=== PATIENT | male | born 1970 | race Caucasian/White ===

== ENCOUNTER 2017-03-23 16:15 | Inpatient (IN) | payer BC ==
[2017-04-04] MEDS ORDERED: CEFAZOLIN/Water 2 GM/20 ML SYRINGE ONE (13:18)
[2017-04-04] MEDS ORDERED: Heparin 5,000 UNITS/ML VIAL ONE (13:18)
[2017-04-04] MEDS ORDERED: Midazolam HCl 2 mg/2 ml Vial ONE (13:22)
[2017-04-04] MEDS ORDERED: Bupivacaine PF 0.5% 30 ML VIAL ONE (13:39)
[2017-04-04] MEDS ORDERED: Fentanyl 250 MCG/5 ML VIAL ONE (13:48)
[2017-04-04] MEDS ORDERED: Propofol 200 MG/20 ML VIAL ONE (14:01)
[2017-04-04] MEDS ORDERED: ePHEDrine/0.9% NaCl/PF SYRINGE 50 mg/10 ml ONE (14:01)
[2017-04-04] MEDS ORDERED: Ondansetron HCl/PF 4 MG/2 ML Vial ONE (14:01)
[2017-04-04] MEDS ORDERED: Succinylcholine Chloride 20 MG/ML 10 ml SYRINGE FS ONE (14:01)
[2017-04-04] MEDS ORDERED: Ketorolac Tromethamine 30 MG/ML VIAL ONE (14:01)
[2017-04-04] MEDS ORDERED: Dexamethasone 20 MG/5 ML VIAL ONE (14:01)
[2017-04-04] MEDS ORDERED: Glycopyrrolate 0.2 MG/ML 5 ML SYRINGE ONE (14:01)
[2017-04-04] MEDS ORDERED: Lidocaine 2% PF 10 ML AMP (For Epidural Use) ONE (14:01)
[2017-04-04] MEDS ORDERED: Hydrocodone-Acetamin 15 ML UDCUP PO PRN (15:44)
[2017-04-04] MEDS ORDERED: Ondansetron HCl/PF 4 MG/2 ML Vial IVP PRN ×3 (15:44→16:03)
[2017-04-04] MEDS ORDERED: diphenhydrAMINE 50 MG/ML VIAL IVP PRN ×2 (15:44→16:03)
[2017-04-04] MEDS ORDERED: Dextrose 5% in Water 1,000 ML IV PRN (15:44)
[2017-04-04] MEDS ORDERED: Dextrose 50% Abboject 50 ML SYRINGE SLOW IVP PRN (15:44)
[2017-04-04] MEDS ORDERED: hydrALAZINE 20 MG/ML VIAL SLOW IVP PRN (15:44)
[2017-04-04] MEDS ORDERED: Promethazine HCl 25 MG/ML VIAL IM PRN ×3 (15:44→16:03)
[2017-04-04] MEDS ORDERED: Promethazine HCl 25 MG/ML VIAL SLOW IVP PRN (16:02)
[2017-04-04] MEDS ORDERED: HYDROmorphone 2 MG/ML VIAL SLOW IVP PRN (16:02)
[2017-04-04] MEDS ORDERED: Fentanyl 5000 MCG/250 ML CADD IVPB PRN (16:03)
[2017-04-04] MEDS ORDERED: Naloxone HCl 0.4 mg/ml Vial IV PRN (16:03)
[2017-04-04] MEDS ORDERED: diphenhydrAMINE 25 MG CAP PO PRN (16:03)
[2017-04-04] MEDS ORDERED: diphenhydrAMINE 50 MG/ML VIAL IM PRN (16:03)
[2017-04-04] MEDS ORDERED: Communication Order-Pharmacy FS SCH (16:15)
[2017-04-04] MEDS ORDERED: Fentanyl 20 MCG/ML 250 ML ONE (16:23)
[2017-04-04] MEDS: Ketorolac Tromethamine 30 MG/ML VIAL IVP SCH (18:15)
[2017-04-04 18:45] VITALS: BMI 31.0
[2017-04-04] MEDS ORDERED: FLU VACC QS2017-18 36 mo. & older 0.5 ML SYRINGE IM ONE (19:00)
--- NOTE | 2017-04-04 20:48 | OP ---
SURGEON: Santos Rogel M.D. PROCEDURE PERFORMED: Laparoscopic Jessica-en-Y gastric bypass. INDICATIONS: This is a 46-year-old male who had undergone sleeve gastrectomy about a year ago, had intractable gastroesophageal reflux causing erosive esophagitis. FINDINGS: A linear 60 mm gastrojejunostomy was performed utilizing blue load stapler. PROCEDURE IN DETAIL: After informed consent was obtained, the patient was taken to the operating ro om and given general endotracheal anesthesia placed in the supine position. The abdomen was prepped and draped in the usual fashion. Local anesthesia infiltrated subcutaneously and deep. A 12 mm in cision was performed approximately 8 inches below the xiphoid site the left. Veress needle inserted . Drop test performed. Pneumoperitoneum was created to a volume of 2 liters of carbon dioxide. Ut ilizing a bladeless 12 mm trocar and 0 degree laparoscope, direct visual entry in the abdominal cavi ty was performed. Pneumoperitoneum was then created to a pressure of 15 mmHg. Two 12 mm ports plac ed on the right and one on the left and the omentum was grasped and advanced superiorly. The ligame nt of Treitz was found, 50 cm of small bowel was measured off and the jejunum was divided utilizing a linear 60 mm white load stapler. Then, the Jessica limb was created by measuring of 80 cm and a side -to-side functional end-to-end anastomosis was performed. Enterotomies were performed and the linea r 60 mm white load stapler was inserted, one limb in each limb of bowel, closed, 20 seconds then fir ed. The anastomosis checked. There was no bleeding. The enterotomy closed with a linear 60 mm whi te load stapler. The potential hernia space of Alvarez was closed with a [id number] of 2-0 si lk. The omentum was split to facilitate delivery of the Jessica limb to the desired position. This wa s done with the LigaSure. Then, the patient was placed in steep reverse Trendelenburg position and Nathansen liver retractor inserted. Left lobe of liver retracted superiorly. The stomach was inspe cted and the lesser curve was opened with LigaSure to allow placement of a stapler across the sleeve . The stomach was divided utilizing a linear 60 mm blue load stapler transversely. Then using caut oliver, the pouch of the stomach was opened. A gastrotomy was performed and then the Jessica limb was bro ught up and an enterotomy was performed approximately 6 cm from the distal staple line. The linear 60 mm blue load stapler was used to insert one limb in the small bowel and also into the stomach gulshan ch. This was then closed and fired. The common gastroenterotomy was closed with a running PDS V-Lo c suture from right to left. While the stitch was still in place, I went above and performed an EGD . The endoscope was inserted under direct vision and advanced through the esophagus into the stomac h pouch and then easily into the Jessica limb. There was no active bleeding nor was there any evidence of air leak when this was emerged under water. This was decompressed and the scope removed. One m ore suture of the V-Loc was performed. It was divided then the needle removed. Hemostasis assured. I had to place a 2-0 Vicryl suture utilizing the GraNee needle on the right side due to some bleed ing from that port site. FloSeal was applied to the gastrojejunostomy anastomosis. Then, trocars a nd retractors were removed. The skin closed with interrupted 4-0 Rapide. Dermabond applied. The p atient tolerated the procedure well and transferred to recovery in good condition. Sponge and needl e count verified correct x2.
[2017-04-04] MEDS: CEFAZOLIN/Water 2 GM/20 ML SYRINGE SLOW IVP SCH (21:04)
[2017-04-05] MEDS: Ketorolac Tromethamine 30 MG/ML VIAL IVP SCH ×3 (00:04→12:34)
[2017-04-05] MEDS: CEFAZOLIN/Water 2 GM/20 ML SYRINGE SLOW IVP SCH (05:30)
[2017-04-05 06:35] LABS: #Lymphocytes 1.2 thou/uL (1.20-3.40); #Monocytes 0.7 thou/uL (0.11-0.59); #Neutrophils 7.9 thou/uL (1.40-6.50); %Basophils 0.1 % (0.0-1.0); %Eosinophils 0.1 % (0.0-10.0); %Monocytes 7.2 % (0.0-10.0); Hematocrit 39.7 % (42.0-52.0); Mean Platelet Volume 7.2 fL (7.4-10.4); Red Blood Cell (RBC) Count 4.24 mill/uL (4.70-6.10); White Blood Cell (WBC) Count 9.8 thou/uL (4.8-10.8)
[2017-04-05 07:03] LABS: Anion Gap 10 mmol/L (10-20); BUN (Urea Nitrogen) 15 mg/dL (8.9-20.6); Calc. Creatinine Clearance 164 mL/min (70-130); Carbon Dioxide 30 mmol/L (22-29); Chloride 102 mmol/L (98-107); Estimated GFR-MDRD Greater than 90
[2017-04-05 08:16] VITALS: BP 96/63; TEMP 97.6
[2017-04-05] MEDS ORDERED: Enoxaparin Sodium 40 MG/0.4 ML SYRINGE SC SCH (09:00)
[2017-04-05] MEDS ORDERED: Pantoprazole 40 MG VIAL IVP SCH (09:00)
--- NOTE | 2017-04-05 09:53 | RAD ---
LIMITED UPPER GI WITH 15 ML OF GASTROGRAFRIN: HISTORY: Recent gastric bypass surgery. FINDINGS: There is prompt passage of contrast from the esophagus into the small bowel loops. No contrast extr avasation is seen. IMPRESSION: No evidence of obstruction or leak. POS: [facility]
[2017-04-05] MEDS ORDERED: GASTROGRAFIN 30 ML BOT ONE (12:00)
--- NOTE | 2017-04-05 17:48 | DIS ---
DATE OF ADMISSION: 04/04/2017 DATE OF DISCHARGE: 04/05/2017 DISCHARGE DIAGNOSIS: Intractable reflux. SURGEON: Dr. Rogel. PROCEDURES DURING ADMISSION: Laparoscopic Jessica-en-Y gastric bypass, esophagogastroduodenoscopy, pos toperative Gastrografin swallow. HOSPITAL COURSE: The patient was admitted, taken to the operating room where he underwent a Jessica-en -Y gastric bypass, conversion from sleeve with intraoperative esophagogastroscopy. Postoperatively, he did well. Gastrografin swallow was fine. Started on liquids, and he is tolerating it well. Pa in is controlled on p.o. meds. He is discharged home on hydrocodone and Zofran, and follow up with me in 2 weeks.
== END 2017-04-05 15:11 | disposition home or self-care (01) | DRG 327 ==
LOC: SURG A 04-04 11:19 → EEVIPCON 04-04 16:15 → SURG B 04-04 17:25
PROVIDERS: ADMIT Surgery; ATTEND Surgery
PROC: 0D164ZA Bypass Stomach to Jejunum, Percutaneous Endoscopic Approach (ICD-10-PCS; principal; 2017-04-04)
PROC: 0DJ08ZZ Inspection of Upper Intestinal Tract, Via Natural or Artificial Opening Endoscopic (ICD-10-PCS; 2017-04-04)
DX: K21.0 Gastro-esophageal reflux disease with esophagitis (principal); K22.10 Ulcer of esophagus without bleeding; I10 Essential (primary) hypertension; Z90.3 Acquired absence of stomach [part of]; E78.00 Pure hypercholesterolemia, unspecified; F32.9 Major depressive disorder, single episode, unspecified; F41.9 Anxiety disorder, unspecified; M19.90 Unspecified osteoarthritis, unspecified site; J45.909 Unspecified asthma, uncomplicated; Z87.891 Personal history of nicotine dependence
CPT/HCPCS: 36415; 74241; 80048; 85025; 90471; 90682; 94760; C9113; G0008; J0131; J1100; J1170; J1644; J1650; J1885; J2001; J2250; J2405; J2704; J3010; Q2036; S0020

== ENCOUNTER 2017-03-23 16:20 | Outpatient (CLI) | payer BC ==
[2017-03-23 17:23] LABS: #Basophils 0.1 thou/uL (0.0-0.2); #Eosinphils 0.1 thou/uL (0.0-0.7); #Lymphocytes 2.5 thou/uL (1.20-3.40); #Monocytes 0.6 thou/uL (0.11-0.59); #Neutrophils 4.2 thou/uL (1.40-6.50); %Basophils 1.2 % (0.0-1.0); %Monocytes 7.5 % (0.0-10.0); Hematocrit 43.1 % (42.0-52.0); Mean Platelet Volume 6.8 fL (7.4-10.4); Red Blood Cell (RBC) Count 4.64 mill/uL (4.70-6.10); White Blood Cell (WBC) Count 7.5 thou/uL (4.8-10.8)
[2017-03-23 17:40] LABS: Hemoglobin A1c 4.8 % (4.0-6.0)
--- NOTE | 2017-03-23 17:49 | RAD ---
PA AND LATERAL CHEST X-RAY 03/23/17 HISTORY: Preoperative evaluation. COMPARISON: 04/28/16. FINDINGS: The cardiac silhouette and pulmonary vasculature are within normal limits. The lungs remain clear. T here has been no interval change when compared to the prior exam. Surgical clips again overlie the right upper quadrant. IMPRESSION: No acute cardiopulmonary process. POS: [facility]
[2017-03-23 17:57] LABS: ALT (SGPT) 67 U/L (8-55); AST (SGOT) 27 U/L (5-34); Alkaline Phosphatase 90 U/L (40-150); Anion Gap 11 mmol/L (10-20); BUN (Urea Nitrogen) 9 mg/dL (8.9-20.6); Bilirubin, Direct 0.3 mg/dL (0.1-0.3); Bilirubin, Total 0.8 mg/dL (0.2-1.2); Calc. Creatinine Clearance 0 mL/min (70-130); Calcium 9.6 mg/dL (7.8-10.44); Carbon Dioxide 31 mmol/L (22-29); Chloride 104 mmol/L (98-107); Estimated GFR-MDRD Greater than 90; Protein, Total 7.3 g/dL (6.0-8.3)
== END 2017-03-23 16:21 | disposition home or self-care (01) ==
LOC: LABBT 16:20
PROVIDERS: ATTEND Surgery
DX: Z01.818 Encounter for other preprocedural examination (principal); E66.01 Morbid (severe) obesity due to excess calories
CPT/HCPCS: 71020; 80053; 80076; 83036; 85025; 93005; 93010

== ENCOUNTER 2017-07-21 09:00 | Outpatient (CLI) | payer BC ==
--- NOTE | 2017-07-21 12:19 | CT ---
CT ABDOMEN AND PELVIS WITH ORAL AND IV CONTRAST: Date: 07/21/17 HISTORY: 46-year-old male with severe left-sided abdominal pain, post gastric bypass surgery. FINDINGS: The lung bases are clear. There is decreased attenuation of the liver compared to the spleen consiste nt with fatty infiltration. No hepatic mass or abnormal biliary ductal dilatation is seen. The patien t is post cholecystectomy and gastric bypass surgery. The spleen, pancreas, adrenal glands, and kidne ys are normal. No free air, free fluid, or lymphadenopathy seen in the abdomen or pelvis. No abnormally loculated fl uid collection is noted to suggest abscess formation. The small bowel loops are not abnormally dilate d. No pericolonic inflammatory changes are seen. A normal appearing appendix is present. There are de generative changes in the spine. A left hip arthroplasty is present. IMPRESSION: 1. Fatty liver. 2. No evidence of bowel obstruction. POS: [facility]
[2017-07-21] MEDS ORDERED: Iopamidol 370 76% 100 ML VIAL ONE (16:36)
== END 2017-07-21 09:01 | disposition home or self-care (01) ==
LOC: CT 09:00
PROVIDERS: ATTEND Surgery
DX: G89.18 Other acute postprocedural pain (principal); K76.0 Fatty (change of) liver, not elsewhere classified
CPT/HCPCS: 74177

== ENCOUNTER 2017-07-23 03:44 | Inpatient (IN) | payer BC ==
[2017-07-23] MEDS ORDERED: Ondansetron HCl/PF 4 MG/2 ML Vial ONE (04:23)
[2017-07-23] MEDS ORDERED: Fentanyl 100 MCG/2 ML VIAL ONE (04:23)
[2017-07-23 04:31] LABS: #Basophils 0.1 thou/uL (0.0-0.2); #Eosinphils 0.1 thou/uL (0.0-0.7); #Lymphocytes 2.2 thou/uL (1.20-3.40); #Monocytes 0.6 thou/uL (0.11-0.59); #Neutrophils 3.5 thou/uL (1.40-6.50); %Basophils 1.3 % (0.0-1.0); %Eosinophils 2.2 % (0.0-10.0); %Lymphocytes 33.9 % (21.0-51.0); %Monocytes 8.8 % (0.0-10.0); %Neutrophils 53.9 % (42.0-75.0); Hemoglobin 13.1 g/dL (14.0-18.0); Mean Corpuscular HGB CONC 33.1 g/dL (32.0-36.0); Mean Corpuscular Hemoglobin 31.1 pg (27.0-31.0); Mean Platelet Volume 6.8 fL (7.4-10.4); Platelet Count 299 thou/uL (130-400); RBC Distribution Width 12.1 % (11.5-14.5); Red Blood Cell (RBC) Count 4.22 mill/uL (4.70-6.10); White Blood Cell (WBC) Count 6.4 thou/uL (4.8-10.8)
[2017-07-23 04:48] LABS: ALT (SGPT) 223 U/L (8-55); AST (SGOT) 106 U/L (5-34); Albumin 3.8 g/dL (3.5-5.0); Alkaline Phosphatase 249 U/L (40-150); Anion Gap 12 mmol/L (10-20); BUN (Urea Nitrogen) 17 mg/dL (8.9-20.6); Bilirubin, Total 0.8 mg/dL (0.2-1.2); Calc. Creatinine Clearance 0 mL/min (70-130); Calcium 8.9 mg/dL (7.8-10.44); Carbon Dioxide 28 mmol/L (22-29); Chloride 104 mmol/L (98-107); Estimated GFR-MDRD Greater than 90; Globulin 2.8 g/dL (2.4-3.5); Glucose 85 mg/dL (70-105); Lipase 310 U/L (8-78); Potassium 3.9 mmol/L (3.5-5.1); Protein, Total 6.6 g/dL (6.0-8.3); Sodium 140 mmol/L (136-145)
[2017-07-23] MEDS ORDERED: Acetaminophen 325 MG TAB PO PRN (06:20)
[2017-07-23] MEDS ORDERED: Ondansetron HCl/PF 4 MG/2 ML Vial IVP PRN (06:20)
[2017-07-23] MEDS ORDERED: Ondansetron ODT 4 MG TAB SL PRN (06:20)
[2017-07-23] MEDS ORDERED: Sodium Chloride 0.9% 1,000 ML IV SCH (06:20)
[2017-07-23 07:19] VITALS: BMI 27.6
[2017-07-23] MEDS: Fentanyl 100 MCG/2 ML VIAL SLOW IVP PRN ×5 (07:47→23:37)
[2017-07-23] MEDS ORDERED: Multivit, Adult Inj 10 ML VIAL IV SCH (09:30)
[2017-07-23] MEDS ORDERED: Multivitamins, Adult 10 ML, Thiamine HCl 100 MG in Sodium Chloride 0.9% 1,000 ML IV SCH (09:30)
[2017-07-23] MEDS ORDERED: Sodium Chloride 0.9% 500 ML IV SCH (09:30)
[2017-07-23 10:03] LABS: Acetaminophen Less than 6.0 mcg/mL (10.0-30.0); Alcohol Less than 10 mg/dL (Less than 10); Salicylate Less than 8.0 mg/dL (15.0-30.0)
[2017-07-23 10:16] LABS: Amphetamine Not Detected (NotDetected); Barbiturates Screen Not Detected (NotDetected); Benzodiazepine Screen Detected (NotDetected); Cocaine Metabolite Screen Not Detected (NotDetected); Medtox Control Line Valid? VALID (VALID); Medtox Reader # READER 1; Methadone Not Detected (NotDetected); Methamphetamine Not Detected (NotDetected); Opiate Screen Detected (NotDetected); Oxycodone Screen Not Detected (NotDetected); Phencyclidine (PCP) Not Detected (NotDetected); THC/Cannabinoid Screen Not Detected (NotDetected); Tricyclic Screen Not Detected (NotDetected)
[2017-07-23] MEDS: Sodium Chloride 0.9% 1,000 ML IV SCH ×2 (10:22→13:40)
[2017-07-23 10:24] LABS: HBCM Index 0.07 S/CO (0-0.79); Hep A IgM AB Non-Reactive (NonReactive); Hep A IgM S/CO 0.11 S/CO (0-0.79); Hep B Surf Ag Non-Reactive S/CO (NonReactive); Hep C IgG Ab Non-Reactive (NonReactive); Hep C Index 0.09 S/CO (0-0.79); Hepatitis B Core IGM Abs Non-Reactive (NonReactive)
[2017-07-23] MEDS ORDERED: Lorazepam 2 MG/ML VIAL SLOW IVP SCH (11:00)
--- NOTE | 2017-07-23 13:41 | MRI ---
NONCONTRAST MRI ABDOMEN AND MRCP: Date: 07-23-17 History: Elevated liver function test and elevated lipase. Post gastric bypass procedure. Severe left sided abdominal pain for several which is now getting worse. FINDINGS: There is no intra or extrahepatic biliary ductal dilatation. No obvious filling defects are seen with in the common duct. Pancreatic duct also appears normal in caliber. There is metallic susceptibility artifact seen within the gallbladder fossa related to surgical clips secondary to cholecystectomy. There is mild fatty infiltration of the liver with a fat fraction of 1 4.5%. The spleen, pancreas, bilateral adrenal glands, and right kidney demonstrate a normal nonenhanced MRI appearance. There are three subcentimeter increased T2 weighted signal intensity foci seen involving the mid portion and inferior pole left kidney likely related to small cysts. There is no hydronephro sis present. There is a tiny amount of free fluid adjacent to the liver and spleen. There is no evidence of lymphadenopathy or fluid collection. There is metallic susceptibility artifac t seen in the region of the GE junction and in the epigastric region likely related to suture materia l secondary to patient's gastric bypass procedure. Mild degenerative changes are seen in the spine. IMPRESSION: 1. Mild fatty infiltration of the liver. 2. Post cholecystectomy changes. There is no evidence of intra or extrahepatic biliary ductal dilatat ion, and no definitive filling defect is seen in the extrahepatic common duct. The pancreas has a nor mal MRI appearance on this nonenhanced exam. 3. Tiny left renal cysts. 4. Post-surgical changes related to gastric bypass procedure. 5. Trace amount of free fluid adjacent to the liver and spleen. POS: [facility]
--- NOTE | 2017-07-23 17:40 | HP ---
CHIEF COMPLAINT: Fatigue and epigastric pain. HISTORY: This is a 46-year-old male who underwent a laparoscopic Jessica-en-Y gastric bypass in March for severe reflux after a sleeve in 10/2016. He was doing fine until about a week ago when he start ed having severe epigastric pain and fatigue. It became much worse last night and he went to the [facility] room. PAST MEDICAL HISTORY: Significant for hyperlipidemia, depression, anxiety, hypertension. PAST SURGICAL HISTORY: Vasectomy, rotator cuff surgery, laparoscopic cholecystectomy in 2004, tonsil and adenoidectomy, sleeve gastrectomy and Jessica-en-Y gastric bypass. MEDICATIONS: Include pravastatin, Pepcid, Viibryd, lorazepam, ALLERGIES: MORPHINE. SOCIAL HISTORY: He is . Occasional alcohol, no tobacco. FAMILY HISTORY: Noncontributory. PHYSICAL EXAMINATION: VITAL SIGNS: Temperature 97.7, pulse 56, blood pressure 108/71. GENERAL: Well-developed, well-nourished male. Appears comfortable, in no apparent distress. HEENT: Unremarkable. LUNGS: Clear. HEART: Regular rate and rhythm. ABDOMEN: Soft. Mild tenderness in the epigastrium. EXTREMITIES: Unremarkable. LABORATORY AND X-RAY FINDINGS: White count 6.4, H and H 13 and 39, platelet count 299. Electrolytes are fine. AST elevated at 106, ALT at 223, alkaline phosphatase at 249, lipase at 310. ASSESSMENT: Elevated liver function tests with pancreatitis. PLAN: MRCP, bowel rest, IV fluids, GI consult.
[2017-07-23] MEDS: Lorazepam 1 MG TAB PO SCH (23:37)
[2017-07-24] MEDS: Sodium Chloride 0.9% 1,000 ML IV SCH ×4 (01:55→14:42)
--- NOTE | 2017-07-24 02:15 | CON ---
DATE OF CONSULTATION: 07/23/2017 REFERRING PHYSICIAN: Santos Rogel M.D. REASON FOR CONSULTATION: Abdominal pain, abnormal LFTs and elevated serum lipase. HISTORY OF PRESENT ILLNESS: Ms. Jd Ulloa is a 46-year-old male with multiple prior surgeries including gastric sleeve surgery and revision to gastric bypass in 03/2017. The patient also has had previous cholecystectomy for gallstones in 2004. The patient developed abdominal pain which is over the left upper quadrant with nausea a couple of weeks ago. The patient did see Dr. Santos Rogel on and was sent for abdominal CAT scan. The patient's pain gotten worse and has had nausea and vomiting. He came to the ER yesterday and had a blood test done. The serum lipase is elevated. Also , liver function elevated. The patient is on pain medicine at the present time. He is n.p.o. except for pain medicine. The abdominal pain persists and the pain is predominantly over the left upper quadrant. It does not radiate to the back. He has had nausea off and on with occasional vomiting. He has no prior history of pancreatitis. The patient does drink alcohol off and on. He had a beer probably 24 hours earlier, but he has had no history of alcohol intake. But however, he does drinks several beers on and off. The patient amylase and lipase are slightly elevated. Also, liver function tests are slightly elevated. He has had no fever. No diarrhea. No other relevant history. MEDICAL ILLNESSES: 1. Hypertension. 2. Hyperlipidemia. 3. History of chronic acid reflux, not controlled with medications. Subsequently, the gastric bypass surgery and his reflux symptoms are much better. 4. He has no history of any heart disease, diabetes, or lung disease. SURGERIES: Multiple surgeries, 1. Gastric sleeve surgery. 2. C5-C6 fusion. 3. Right rotator cuff surgery. 4. Laminectomy L2-S1. 5. Left hip replacement. 6. Status post laparoscopic cholecystectomy. 7. Status post gastric bypass last year because of worsening acid reflux. Other surgeries include tonsillectomy, hernia repair, and also vasectomy. MEDICATIONS: List reviewed. REVIEW OF SYSTEMS: A 10-point system reviewed. CONSTITUTIONAL: Complains of fatigue and tiredness of recent onset. He also had nausea. No history of fever. No recent weight loss. RESPIRATORY: No history of chronic cough, hemoptysis, exertional dyspnea. CARDIOVASCULAR: No chest pain, no palpitation, no exertional dyspnea, orthopnea or PND. GASTROINTESTINAL: Abdominal pain, nausea with occasional vomiting. His bowel movements are very loose and he has almost like a dumping syndrome . At times, he has multiple loose stools. No hematochezia, no melena. GENITOURINARY: No dysuria, hematuria or frequency of urination. MUSCULOSKELETAL/ENDOCRINE/HEMATOLOGICAL: Unremarkable. NEUROPSYCHIATRIC: History of anxiety. PHYSICAL EXAMINATION: GENERAL: The patient appears comfortable. He is thin built. He is in no distress. He is awake, alert, oriented to time and place and person. He is in no distress at the present time. VITAL SIGNS: He is afebrile, pulse is 56, blood pressure 107/72. HEENT: Conjunctivae clear. NECK: Supple. No adenitis or thyromegaly noted. CARDIOVASCULAR: First and second heart sounds normal. LUNGS: Clear to auscultation. ABDOMEN: Soft to palpate. Abdomen is mildly tender over the left upper quadrant. There is some fullness noted. There is no rebound or guarding. No organomegaly or masses. Bowel sounds are active. EXTREMITIES: Reveal no edema. LABORATORY DATA: Shows WBC 6400, hemoglobin 13.1, hematocrit 39.7, MCV is 94, platelet count is 299,000, polymorphs 53, lymphocytes 33. Serum chemistries, lipase is 310. LFTs, AST 106, ALT 223, alkaline phosphatase 249. Chem-7 is normal. He had an abnormal CAT scan on 07/21/2017. The CAT scan is basically negative for fatty liver. There is no biliary duct dilatation and no pancreatic mass seen. CLINICAL IMPRESSION: 1. Acute pancreatitis most likely biliary in etiology. The patient has had prior cholecystectomy about 12 years ago. Based on the history and physical findings and elevated LFTs, most likely he has passed a stone down to bile duct or he still has some retained stone. Other possibilities could have pancreatitis from alcohol intake. He does not drink alcohol off and on. 2. Multiple prior abdominal surgeries including gastric sleeve, gastric bypass , cholecystectomy, etc. 3. Hypertension. 4. Hyperlipidemia. RECOMMENDATIONS: N.p.o., analgesics and IV fluids. I did talk to Dr. Santos Rogel about the management. He has had a gastric bypass surgery. ERCP. However, an MRCP can be done and we will order an MRCP hopefully today or tomorrow. If the MRCP does show some retained stone, he will be referred for endoscopy for ERCP. RODRIGO
[2017-07-24] MEDS: Fentanyl 100 MCG/2 ML VIAL SLOW IVP PRN ×5 (06:06→19:54)
[2017-07-24] MEDS: Thiamine HCl 200 MG/2 ML VIAL SLOW IVP SCH (08:43)
[2017-07-24 10:14] LABS: ALT (SGPT) 141 U/L (8-55); AST (SGOT) 45 U/L (5-34); Albumin 3.4 g/dL (3.5-5.0); Alkaline Phosphatase 223 U/L (40-150); Bilirubin, Direct 0.4 mg/dL (0.1-0.3); Bilirubin, Total 0.9 mg/dL (0.2-1.2); Lipase 14 U/L (8-78); Protein, Total 5.8 g/dL (6.0-8.3)
[2017-07-24] MEDS ORDERED: HYDROcodone/Acetaminophen 10/325 mg Tablet PO PRN (17:18)
[2017-07-24] MEDS: HYDROcodone/Acetaminophen 10/325 mg Tablet PO PRN ×2 (17:26→22:32)
[2017-07-24] MEDS: Ondansetron HCl/PF 4 MG/2 ML Vial SLOW IVP PRN ×2 (18:31→22:32)
[2017-07-24] MEDS: Lorazepam 1 MG TAB PO SCH (22:25)
[2017-07-25] MEDS: Sodium Chloride 0.9% 1,000 ML IV SCH ×3 (02:44→14:29)
--- NOTE | 2017-07-25 04:28 | PRG ---
DATE OF SERVICE: 07/24/2017 HISTORY OF PRESENT ILLNESS: This is a 46-year-old male hospitalized with acute pancreatitis and abnormal LFTs. The patient is status post cholecystectomy about 12 years ago. He also had a gastric sleeve, gastric bypass. He had MRCP done yesterday. The MRCP shows no filling defect in the common bile duct. There was no other pathology seen. He continued to have abdominal pain and he is on fentanyl. He said the fentanyl really does not help that much. His serum lipase was 310 yesterday, which has come back to normal at 14 today. Liver function tests are trending down. The AST is down to 45, ALT 141, alkaline phosphatase 223. PHYSICAL EXAMINATION: GENERAL: Appears comfortable, afebrile. VITAL SIGNS: Pulse is 62, blood pressure 122/79. CARDIOVASCULAR: Within normal limits. ABDOMEN: Soft to palpate. Abdomen is mildly tender over the left upper quadrant. There is no rebound or guarding. The exam is overall benign. CLINICAL IMPRESSION: 1. Acute pancreatitis, most likely biliary. It is possible that he could have passed the stone down the common bile duct to account for the elevation of the LFTs. The magnetic resonance cholangiopancreatography was negative for any gallstones in the gallbladder. 2. Status post gastric bypass in 2016. 3. Status post cholecystectomy in 2004. RECOMMENDATIONS: 1. Clear liquid diet today and advance diet as tolerated. 2. Follow up LFTs. We will sign off as his lipase is back to normal. If he needs further assistance, please call me back. RODRIGO
[2017-07-25] MEDS: HYDROcodone/Acetaminophen 10/325 mg Tablet PO PRN ×2 (04:34→10:43)
[2017-07-25] MEDS: Fentanyl 100 MCG/2 ML VIAL SLOW IVP PRN ×2 (04:35→21:56)
[2017-07-25] MEDS: Ondansetron HCl/PF 4 MG/2 ML Vial SLOW IVP PRN ×2 (04:37→10:43)
[2017-07-25 05:11] LABS: ALT (SGPT) 105 U/L (8-55); AST (SGOT) 29 U/L (5-34); Albumin 3.2 g/dL (3.5-5.0); Alkaline Phosphatase 189 U/L (40-150); Bilirubin, Direct 0.3 mg/dL (0.1-0.3); Bilirubin, Total 0.6 mg/dL (0.2-1.2); Lipase 100 U/L (8-78); Protein, Total 5.5 g/dL (6.0-8.3)
[2017-07-25] MEDS: Thiamine HCl 200 MG/2 ML VIAL SLOW IVP SCH (08:54)
[2017-07-25] MEDS ORDERED: traMADol HCl 50 MG TAB PO PRN ×2 (14:21)
[2017-07-25] MEDS ORDERED: Ondansetron HCl/PF 4 MG/2 ML Vial SLOW IVP PRN (14:23)
[2017-07-25] MEDS: Lorazepam 1 MG TAB PO SCH (20:05)
--- NOTE | 2017-07-25 20:24 | PRG ---
DATE OF SERVICE: 07/25/2017 SUBJECTIVE: Mr. Ulloa was seen in followup today. He has been seen by Dr. 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 Dominick Palmer. He states he felt a little better and his diet was advanced and the pain worsened. He has had no melena, hematochezia, n ausea or vomiting. He does not have any pain like this in the past. It was felt it may be due to pa ncreatitis, although his lipase was never above 310, yesterday it was 14, today it is 100. He did michaels ve mild elevation of the liver functions, which are slowly improving. I talked with the patient, he knows that he was started on etodolac recently, prior to that he was on meloxicam. Pain began about a week after starting the etodolac. OBJECTIVE: VITAL SIGNS: Temperature is 97, pulse 61, blood pressure is 110/77. ABDOMEN: Soft, mild tender epigastrium. There is no rebound. There is no guarding. LABORATORY STUDIES: AST normal at 29, ALT 105, alkaline phosphatase 29, down from 223 yesterday and 249 day before that. Lipase is 100, it was 14 yesterday and 310 on the . Serology, hepatitis A, B, C negative. Toxicology, positive for benzos and opiates on admission. It is unclear if these we re given in the ER. Plasma alcohol is less than 10 on admission. ASSESSMENT: Epigastric pain, ongoing. There are no signs of pancreatitis or choledocholithiasis on CT or MRCP. At this point, it is not clear if he had pancreatitis. With ongoing epigastric pain, di fferential diagnoses include disease, NSAID related effect on stomach and liver, viral illness. PLAN: With no signs of choledocholithiasis at this time on multiple imaging studies and dropping LFT s, normal bilirubin, I do not see a role for ERCP at this time. We will set up for EGD tomorrow with regard to his epigastric pain.
[2017-07-26] MEDS: Sodium Chloride 0.9% 1,000 ML IV SCH ×4 (03:43→18:16)
[2017-07-26] MEDS: Fentanyl 100 MCG/2 ML VIAL SLOW IVP PRN ×5 (05:57→23:54)
[2017-07-26] MEDS: Thiamine HCl 200 MG/2 ML VIAL SLOW IVP SCH (09:31)
[2017-07-26] MEDS ORDERED: Fentanyl 100 MCG/2 ML VIAL ONE (12:30)
--- NOTE | 2017-07-26 14:02 | OP ---
DATE OF PROCEDURE: 07/26/2017 PROCEDURE: Esophagogastroduodenoscopy with foreign body removal. INDICATIONS: Midepigastric abdominal pain. DESCRIPTION OF PROCEDURE: After the risks and benefits of the procedure were explained to the patient including risks of infection, bleeding, perforation, reaction to anesthesia, and/or perforation. Informed consent was obtained. The patient was then taken to the endoscopy suite where deep sedation was administered via propofol and anesthesia support. The standard gastroscope was then advanced into the mouth with intubation of the esophagus, stomach, and proximal small intestine with the findings listed below. The patient tolerated the procedure well with no immediate perioperative period. FINDINGS: Esophagus: Normal appearing mucosa was seen in the proximal and mid esophagus. Multiple linear erosions were seen in the distal esophagus extending from the GE junction, approximately 3-4 cm, but not confluent or circumferential and that also did not extend between the esophageal folds. There was no evidence of overt ulceration within the distal esophagus or mass lesions. Stomach: Surgical change consistent with Jessica-en-Y gastric bypass was observed upon entry into the stomach. A large 2-3 cm ulcer was seen at the anastomotic site with no high risk stigmata of bleeding. However, the ulcer itself was cratered with friable edges that bled with the passage of the scope. Also, within the center of the ulceration, was a surgical clip that was free from the underlying gastric tissue. This was removed with rat-tooth forceps and placed in a specimen jar for evaluation. Multiple other ulcers were seen around the anastomosis site measuring between 3 mm and 5 mm in size, all without any evidence of active/recent bleeding or high risk stigmata of bleeding. The afferent limb was noted to be normal. The efferent limb into the proximal small intestine was also normal. Small intestine: Normal appearing mucosa was seen in the proximal efferent limb of the small intestine with no erosions, ulcerations, or mass lesions. IMPRESSION: 1. LA grade B reflux mediated esophagitis. 2. Large (2-3 cm) cratered ulceration seen at the anastomosis of the gastric bypass with a foreign body in the middle of that was removed (most likely could contribute to the patient's abdominal pain). 3. Surgical change consistent with Jessica-en-Y gastric bypass. 4. Normal appearing small bowel mucosa. RECOMMENDATIONS: 1. Follow with the primary inpatient team. 2. We will place the patient on pantoprazole 40 mg IV b.i.d. and we will need to be on this twice daily dosing for at least the next 8 weeks. 3. We would consider repeat EGD evaluation in 8 weeks to confirm healing of ulceration within the proximal stomach. 4. Pain control per primary team. 5. Would continue what you are doing with IV fluids and pain control for possible pancreatitis. MTDD
[2017-07-26] MEDS ORDERED: PROPOFOL 200 MG/20 ML VIAL ONE (16:33)
[2017-07-26] MEDS ORDERED: Lidocaine 1% PF 5 ML VIAL ONE (16:33)
[2017-07-26] MEDS: Pantoprazole 40 MG VIAL IVP SCH (20:14)
[2017-07-26] MEDS: Lorazepam 1 MG TAB PO SCH (20:15)
[2017-07-27] MEDS: Sodium Chloride 0.9% 1,000 ML IV SCH ×3 (03:48→12:45)
[2017-07-27] MEDS: Fentanyl 100 MCG/2 ML VIAL SLOW IVP PRN (03:49)
[2017-07-27] MEDS: Pantoprazole 40 MG VIAL IVP SCH (09:25)
[2017-07-27] MEDS: Thiamine HCl 200 MG/2 ML VIAL SLOW IVP SCH (09:26)
[2017-07-27] MEDS: Sucralfate 1 GM/10 ML UDCUP PO SCH ×2 (09:30→20:48)
[2017-07-27] MEDS ORDERED: Hydrocodone-Acetamin 15 ML UDCUP PO PRN ×2 (14:11→14:12)
[2017-07-27] MEDS: Ondansetron HCl/PF 4 MG/2 ML Vial SLOW IVP PRN (15:19)
--- NOTE | 2017-07-27 17:54 | PRG ---
DATE OF SERVICE: 07/27/2017 SUBJECTIVE: The patient is feeling much better today. He is having no nausea or vomiting. He is michaels ving no bleeding. He is hungry and wants solid food. OBJECTIVE: VITAL SIGNS: Temperature 98.3, pulse 72, respiratory rate 14, blood pressure 127/86. CHEST: Clear. CARDIOVASCULAR: Regular rate and rhythm. ABDOMEN: Benign. LABORATORY DATA: Shows hemoglobin 13.1 from 07/23/2017, AST is normalized at 29, ALT is 105, alkalin e phosphatase 189. Histopathology specimen showed foreign body consistent with metallic clips. ASSESSMENT: 1. Reflux esophagitis. 2. A 2-3 cm ulcer at the anastomosis of the gastric bypass. RECOMMENDATIONS: 1. Continue pantoprazole, but switch to oral. 2. EGD in 8 weeks as outpatient. 3. Advance diet. 4. Stable for discharge from gastrointestinal standpoint tomorrow if improvement continues.
[2017-07-27] MEDS: Lorazepam 1 MG TAB PO SCH (20:49)
[2017-07-28] MEDS: Sodium Chloride 0.9% 1,000 ML IV SCH (04:41)
[2017-07-28 08:22] VITALS: BP 125/84; TEMP 95
[2017-07-28] MEDS: Thiamine HCl 200 MG/2 ML VIAL SLOW IVP SCH (08:24)
[2017-07-28] MEDS: Sucralfate 1 GM/10 ML UDCUP PO SCH (08:25)
--- NOTE | 2017-07-28 11:36 | DIS ---
DISCHARGE DIAGNOSES: 1. Gastric ulcer 2. Pancreatitis. 3. Elevated liver function tests. PROCEDURES DURING ADMISSION: CT scan of abdomen and pelvis, MRCP, EGD. HOSPITAL COURSE: The patient was admitted with pancreatitis, given IV fluids, kept n.p.o. CT scan d id not show a reason. GI was consulted. He had a recent gastric bypass, so an MRCP was performed th at was normal. No filling defects. They performed an EGD that showed a gastric ulcer. He was start ed on Carafate, pain went away, continued on Protonix. He was discharged home on Protonix and Carafa te and hydrocodone elixir. We will follow. He will stay on liquids for a few days. Follow up with me in 2 weeks.
== END 2017-07-28 09:40 | disposition home or self-care (01) | DRG 383 ==
LOC: ERS 03:44 → OBSVTOIN 06:22 → 2SW 06:22 → SURG B 22:25
PROVIDERS: ADMIT Surgery; ATTEND Surgery
PROC: 0DC68ZZ Extirpation of Matter from Stomach, Via Natural or Artificial Opening Endoscopic (ICD-10-PCS; principal; 2017-07-26)
DX: K25.9 Gastric ulcer, unspecified as acute or chronic, without hemorrhage or perforation (principal); K85.90 Acute pancreatitis without necrosis or infection, unspecified; E78.5 Hyperlipidemia, unspecified; F32.9 Major depressive disorder, single episode, unspecified; F41.9 Anxiety disorder, unspecified; I10 Essential (primary) hypertension; Z98.84 Bariatric surgery status; Z88.5 Allergy status to narcotic agent; K21.0 Gastro-esophageal reflux disease with esophagitis; Z98.1 Arthrodesis status; Z96.642 Presence of left artificial hip joint; Z87.891 Personal history of nicotine dependence
CPT/HCPCS: 36415; 74181; 80053; 80074; 80076; 80306; 80307; 83690; 84425; 85025; 88300; 96361; 96374; 96375; A4216; C9113; J2001; J2060; J2405; J2704; J3010; J3411; J7050

== ENCOUNTER 2018-02-20 20:55 | Emergency (ER) | payer BC ==
[2018-02-20 21:27] LABS: #Basophils 0.1 thou/uL (0.0-0.2); #Eosinphils 0.2 thou/uL (0.0-0.7); #Lymphocytes 2.2 thou/uL (1.20-3.40); #Monocytes 0.4 thou/uL (0.11-0.59); #Neutrophils 2.8 thou/uL (1.40-6.50); %Basophils 1.5 % (0.0-1.0); %Eosinophils 4.4 % (0.0-10.0); %Monocytes 6.2 % (0.0-10.0); %Neutrophils 48.9 % (42.0-75.0); Hemoglobin 14.4 g/dL (14.0-18.0); Mean Corpuscular HGB CONC 34.2 g/dL (32.0-36.0); Mean Corpuscular Hemoglobin 32.9 pg (27.0-31.0); Mean Corpuscular Volume 96.2 fL (78.0-98.0); Mean Platelet Volume 7.7 fL (7.4-10.4); Platelet Count 263 thou/uL (130-400); RBC Distribution Width 11.1 % (11.5-14.5); Red Blood Cell (RBC) Count 4.37 mill/uL (4.70-6.10); White Blood Cell (WBC) Count 5.6 thou/uL (4.8-10.8)
[2018-02-20 21:42] LABS: ALT (SGPT) 155 U/L (8-55); AST (SGOT) 64 U/L (5-34); Albumin 4.1 g/dL (3.5-5.0); Alkaline Phosphatase 120 U/L (40-150); Anion Gap 11 mmol/L (10-20); BUN (Urea Nitrogen) 12 mg/dL (8.9-20.6); Bilirubin, Total 1.2 mg/dL (0.2-1.2); Calc. Creatinine Clearance 0 mL/min (70-130); Calcium 9.3 mg/dL (7.8-10.44); Carbon Dioxide 29 mmol/L (22-29); Chloride 106 mmol/L (98-107); Estimated GFR-MDRD Greater than 90; Globulin 2.7 g/dL (2.4-3.5); Glucose 85 mg/dL (70-105); Lipase 23 U/L (8-78); Potassium 5.1 mmol/L (3.5-5.1); Protein, Total 6.8 g/dL (6.0-8.3); Sodium 141 mmol/L (136-145)
[2018-02-20] MEDS ORDERED: Ondansetron ODT 4 MG TAB ONE (22:32)
[2018-02-21] MEDS ORDERED: Fentanyl 100 MCG/2 ML VIAL ONE ×2 (00:54→03:12)
[2018-02-21] MEDS ORDERED: Ondansetron HCl/PF 4 MG/2 ML Vial ONE (00:54)
[2018-02-21] MEDS ORDERED: Famotidine/PF 20 mg/2ml Vial ONE (03:12)
--- NOTE | 2018-02-21 07:52 | CT ---
PRELIMINARY REPORT/[facility]/EMERGENTY AFTER-HOURS PROCEDURE CT Abdomen and Pelvis With Intravenous Contrast CLINICAL HISTORY: 47 years old, male; Pain; Abdominal pain; Generalized; Prior surgery; Patient HX: M47 presents with a bd pain x1 week that has worsened over the past few days. Pt denies any fall or injury recently. Pt r eports gastric sleeve and bypass surgery last one done in 2016. Pt denies any urinary complaints. Pt reports nausea and vomiting. Pt denies fever, chills, or cough. Pt denies any cp. Pt reports bright r ed blood in his stool recently. TECHNIQUE: Axial computed tomography images of the abdomen and pelvis with intravenous contrast. Coronal reformatted images were created and reviewed. COMPARISON: No relevant prior studies available. FINDINGS: Lung bases: Normal. No mass. No consolidation. Mediastinum: Mild wall thickening of the visualized distal esophagus, which can be seen with edema an d/or inflammation. ABDOMEN: Liver: Normal. Gallbladder and bile ducts: Gallbladder is surgically absent. Pancreas: Normal. Spleen: Normal. Adrenals: Normal. Kidneys and ureters: Normal. Stomach and bowel: Minimal wall thickening of the proximal duodenum. Surgical changes of prior gastri c sleeve procedure and gastric bypass, without acute complications. PELVIS: Appendix: Appendix is normal. Bladder: Normal. Reproductive: Normal as visualized. ABDOMEN and PELVIS: Intraperitoneal space: Normal. No free air. No significant fluid collection. Bones/joints: Left hip arthroplasty, without acute complications. Degenerative changes of the right h ip and sacroiliac joints. Multilevel thoracolumbar spine degenerative changes. Left hip arthroplasty, without acute complications. Multilevel thoracolumbar spine degenerative changes. No dislocation. Soft tissues: Normal. Vasculature: Normal. No abdominal aortic aneurysm. Lymph nodes: Normal. IMPRESSION: 1. Mild wall thickening of the visualized distal esophagus, which can be seen with edema and/or infla mmation. 2. Minimal wall thickening of the proximal duodenum. Findings may represent mild duodenitis. 3. Incidental/non-acute findings are described above. Thank you for allowing us to participate in the care of your patient. Dictated and Authenticated by: Ba Dobson MD 02/21/2018 3:39 AM Central Time ([place] & [place]) CT ABDOMEN AND PELVIS WITH ORAL AND IV CONTRAST: FINAL REPORT: I agree with the preliminary report given by Dr. Ba Dobson of [facility]. POS: [facility]
[2018-02-21] MEDS ORDERED: Iopamidol 370 76% 50 ML VIAL FS ONE (08:05)
[2018-02-21] MEDS ORDERED: ISOVUE-370 76%-LOCM 1 ML ONE (08:05)
== END 2018-02-21 04:40 | disposition home or self-care (01) ==
LOC: ERS 20:55
DX: R10.9 Unspecified abdominal pain (principal); I10 Essential (primary) hypertension; F41.9 Anxiety disorder, unspecified; F32.9 Major depressive disorder, single episode, unspecified; Z87.891 Personal history of nicotine dependence; Z79.899 Other long term (current) drug therapy
CPT/HCPCS: 36415; 74177; 80053; 83605; 83690; 85025; 96361; 96374; 96375; 96376; J2405; J3010; Q0162; S0028